=== PATIENT | female | born 1945 | race Caucasian/White ===

== ENCOUNTER 2017-09-07 07:09 | Day surgery (SDC) | payer OTHER, BC ==
[2017-09-07 07:58] VITALS: BMI 23.1
[2017-09-07] MEDS ORDERED: DEXAMETHASONE SOD PHOSPHATE/PF 10 MG/ML SDV ONE (10:58)
[2017-09-07] MEDS ORDERED: MIDAZOLAM HCL 2 MG/2 ML SINGLE DOSE VIAL ONE (10:58)
[2017-09-07] MEDS ORDERED: BUPIVACAINE HCL/PF (5 MG/ML) 30 ML VIAL IJ ONE (10:59)
[2017-09-07] MEDS ORDERED: PROPOFOL 20 ML ONE ×3 (12:13)
--- NOTE | 2017-09-07 14:02 | OP ---
Operative Note - Note: Operative Date: 09/07/17 Pre-Operative Diagnosis: 1. Right shoulder impingement syndrome. 2. Right rotator cuff tear Operation: Right shoulder open: 1. Neer decompression (acromioplasty, CA ligament release). 2. Nellie procedure (distal claviculectomy). 3. Rotator cuff repair Post-Operative Diagnosis: Same as Pre-op Surgeon: Ashutosh Esparza Plant Director: Cristi Esparza (Co-Surgeon) Anesthesiologist/POWDER WORKER: Robe Gongora Anesthesia: MAC (Interscalene block) Estimated Blood Loss (mls): 75 Operative Report Dictated: Yes
[2017-09-07 14:10] VITALS: TEMP 97.7
[2017-09-07] MEDS ORDERED: ONDANSETRON 4 MG/2 ML VIAL ONE (14:22)
[2017-09-07] MEDS ORDERED: ONDANSETRON 4 MG/2 ML VIAL IVPUSH ONE (14:26)
[2017-09-07] MEDS ORDERED: PROMETHAZINE HCL 25 MG/1 ML VIAL IVPUSH PRN (14:52)
[2017-09-07] MEDS ORDERED: oxyCODONE HCL 5 MG TABLET PO PRN ×2 (14:52)
[2017-09-07] MEDS ORDERED: ONDANSETRON 4 MG/2 ML VIAL IVPUSH PRN (14:52)
[2017-09-07] MEDS ORDERED: PRILOSEC OTC 20 MG PO PRN (15:27)
[2017-09-07 15:58] VITALS: BP 153/78; PULSE 59
--- NOTE | 2017-09-07 19:56 | OP ---
DATE OF OPERATION: 09/07/2017 SURGEON: Ashutosh Esparza M.D. CO-SURGEON: Cristi Esparza M.D. PREOPERATIVE DIAGNOSIS: Impingement syndrome with rotator cuff tear, right shoulder, failed conservative treatment. POSTOPERATIVE DIAGNOSIS: Impingement syndrome with rotator cuff tear, right shoulder, failed conservative treatment. OPERATING PERFORMED: 1. Lateral excision claviculectomy ([employer]). 2. Transection of coracoacromial ligament. 3. Acromioplasty. 4. Repair of rotator cuff. ANESTHESIA: Scalene block with general conscious sedation. ANTIBIOTICS GIVEN: 2 g Kefzol, 1 g vancomycin. PROCEDURE: Patient correctly identified. Under regional anesthesia and conscious sedation, the right upper extremity was prepped in the routine manner with Betadine scrub solution, wiped with alcohol, Duraprep applied, a free drape applied accordingly. From the tip of the coracoid to the tip of the acromion in the line of Geovanna the incision was made. The dissection was taken to the level in the plane to reach the clavicle. A was placed around the back surface of the clavicle and the AC joint identified. The AC joint was incised with a 15 blade needle. Marked degenerative changes on the joint were noted. The deltoid was split longitudinally to expose the coracoacromial ligament. Once this had been performed, using a 15 blade, the coracoacromial ligament was incised. A [place] instrument was placed under this to separate the tissues from the deep underlying rotator cuff. The ligament was transected appropriately, both cranially and caudally in relation to the ligament. The entire rotator cuff was freed. It was impossible to get a finger into the subacromial space. With gentle traction I was able to get a curved 1-inch osteotome on the undersurface of the acromion, leaving the humeral head down, and an appropriate acromioplasty was performed to resect the bone that was hard up against the actual humeral head. Once this had been performed completely, compression had been achieved on the subacromial space, as well as the ability to look at the rotator cuff clearly. With the shoulder in extension, a 1 x 1 cm tear was located; this was repaired with number 1 Vicryl sutures. This was after resection of the avascular peripheral margin of the tear. That means bleeding healthy tissue was approximated to healthy bleeding tissue. The wounds were thoroughly lavaged. Closure was as follows: The shoulder excision arthroplasty remaining capsule was folded into position. The deltoids were approximated with 2-0 Vicryl, the subcutaneous 2-0 Vicryl, skin 3-0 Monocryl with Steri-Strips. A sling provided. Overall, operation went well. No complications. MD ZION White/[id number]
[2017-09-07] MEDS ORDERED: PATIENT'S OWN MEDICATION (NON-FORMULARY) (Cyclosporine [Restasis] 1 DROP) OU SCH (22:00)
[2017-09-07] MEDS ORDERED: CROMOLYN SODIUM 4% OPHTH DROPS 10 ML BOTTLE OU SCH (22:00)
[2017-09-08] MEDS ORDERED: MOMETASONE FUROATE 110 MCG/IH INHALER IH SCH (10:00)
== END 2017-09-07 15:45 | disposition home or self-care (01) ==
LOC: FASU 07:09
PROVIDERS: ATTEND Orthopaedic Surgery Orthopaedic Surgery of the Spine
PROC: 0LB10ZZ Excision of Right Shoulder Tendon, Open Approach (ICD-10-PCS; 2017-09-07)
PROC: 0PB90ZZ Excision of Right Clavicle, Open Approach (ICD-10-PCS; principal; 2017-09-07 12:46)
DX: M75.41 Impingement syndrome of right shoulder (principal); M75.101 Unspecified rotator cuff tear or rupture of right shoulder, not specified as traumatic
CPT/HCPCS: 94760

== ENCOUNTER 2021-05-27 08:00 | Inpatient (IN) | payer OTHER, BC ==
[2021-06-02 12:18] VITALS: BMI 23.5
[2021-06-03] MEDS ORDERED: SODIUM CHLORIDE 0.9% P/F 10 ML VIAL IJ ONE (06:28)
[2021-06-03] MEDS ORDERED: MIDAZOLAM HCL 2 MG/2 ML SINGLE DOSE VIAL ONE (06:28)
[2021-06-03] MEDS ORDERED: BUPIVACAINE LIPOSOME/PF (EXPAREL) 266 MG/20 ML VIAL ONE (06:28)
[2021-06-03] MEDS ORDERED: BUPIVACAINE HCL/PF 0.5% (5MG/ML) 10 ML VIAL ONE (06:28)
[2021-06-03] MEDS ORDERED: LOCK ITEM NR ONE (06:40)
[2021-06-03] MEDS ORDERED: PROPOFOL 20 ML ONE ×3 (07:03)
[2021-06-03] MEDS ORDERED: BUPIVACAINE HCL 50 ML ONE (07:10)
[2021-06-03] MEDS ORDERED: BENZOIN/ALOE VERA/STORAX/TOLU 30 ML TINCTURE ONE (07:41)
[2021-06-03] MEDS ORDERED: VANCOMYCIN 1,000 MG VIAL (RESTRICTED TO ID ONLY) ONE (09:07)
[2021-06-03] MEDS ORDERED: DEXAMETHASONE SOD PHOSPHATE 4 MG/1 ML VIAL ONE (09:07)
[2021-06-03] MEDS ORDERED: ceFAZolin SODIUM 1 GM VIAL ONE ×3 (09:07→21:11)
[2021-06-03] MEDS ORDERED: TRANEXAMIC ACID 1000 MG/10 ML VIAL ONE (09:07)
[2021-06-03] MEDS ORDERED: ONDANSETRON 4 MG/2 ML VIAL ONE (09:07)
[2021-06-03] MEDS ORDERED: ePHEDrine SULFATE 50 MG/1 ML AMPULE ONE (09:10)
[2021-06-03] MEDS ORDERED: ACETAMINOPHEN 325 MG TABLET (FP) PO PRN (12:05)
[2021-06-03] MEDS: ACETAMINOPHEN 1000 MG/100 ML VIAL IVPB PRN (12:05)
[2021-06-03] MEDS ORDERED: oxyCODONE HCL 5 MG TABLET PO PRN (12:05)
[2021-06-03] MEDS ORDERED: ONDANSETRON 4 MG/2 ML VIAL IVPUSH PRN (12:05)
[2021-06-03] MEDS ORDERED: KETOROLAC TROMETHAMINE 30 MG/1 ML VIAL ONE (12:06)
[2021-06-03] MEDS ORDERED: ARTIFICIAL TEARS (POLYVINYL ALCOHOL) OPTH DROPS OU PRN (12:06)
[2021-06-03] MEDS ORDERED: ACETAMINOPHEN INJECTION 100 ML IVPB ONE (12:06)
[2021-06-03] MEDS ORDERED: LACTATED RINGERS SOLUTION 1,000 ML IV SCH ×2 (12:15→13:00)
[2021-06-03] MEDS: KETOROLAC TROMETHAMINE 30 MG/1 ML VIAL IVPUSH SCH ×3 (12:18→18:16)
[2021-06-03] MEDS ORDERED: MAG HYDROX/AL HYDROX/SIMETH 30 ML UNIT-DOSE CUP PO PRN (12:50)
[2021-06-03] MEDS ORDERED: MAGNESIUM HYDROX 2400MG/30ML ORAL SUSPENSION 30 ML CUP PO PRN (12:50)
[2021-06-03] MEDS ORDERED: PROMETHAZINE HCL 25 MG/1 ML VIAL ONE (13:01)
[2021-06-03] MEDS: PROMETHAZINE HCL 25 MG/1 ML VIAL IVPUSH ONE ×2 (13:07→14:26)
[2021-06-03] MEDS: traMADol HCL 50 MG TABLET PO PRN ×2 (14:39→21:33)
[2021-06-03] MEDS ORDERED: DEXTROSE 5%-WATER 100 ML IVPB ONE ×2 (16:06→21:11)
[2021-06-03] MEDS: CEFAZOLIN 2 GM in DEXTROSE 5%-WATER 100 ML IVPB SCH ×2 (16:14→21:23)
[2021-06-03] MEDS ORDERED: HYDROmorphone HCL CARPU-JECT 2 MG/1 ML DISP.SYRIN IVPB PRN (16:29)
[2021-06-03] MEDS ORDERED: diazePAM 5 MG TABLET PO PRN (16:31)
[2021-06-03] MEDS ORDERED: HYDROmorphone HCl 2 MG/ML VIAL IVPB PRN (17:17)
[2021-06-03] MEDS ORDERED: CEFAZOLIN 2 GM in DEXTROSE 5%-WATER - 50 ML IVPB SCH (18:00)
[2021-06-03] MEDS ORDERED: PROMETHAZINE HCL 25 MG/1 ML VIAL IVPUSH ONE (18:25)
[2021-06-03] MEDS ORDERED: PT OWN MED DRAWER 7, Y5N ONE (21:11)
[2021-06-03] MEDS: ASPIRIN COATED 81 MG TABLET.EC PO SCH (21:18)
[2021-06-03] MEDS: GABAPENTIN 300 MG CAPSULE PO SCH (21:18)
[2021-06-03] MEDS: SENNOSIDES/DOCUSATE COMBO (SENNA PLUS) TABLET (UD) PO SCH (21:19)
[2021-06-03] MEDS: CROMOLYN SODIUM 4% OPHTH DROPS 10 ML BOTTLE OU SCH (21:20)
[2021-06-03] MEDS: DORZOLAMIDE 2% HCL OPHTHALMIC SOLUTION 10 ML BOTTLE OU SCH (21:21)
[2021-06-03] MEDS: BRIMONIDINE TARTRATE 0.15% OPHTHALMIC 5 ML BOTTLE OU SCH (21:22)
[2021-06-04] MEDS: CEFAZOLIN 2 GM in DEXTROSE 5%-WATER 100 ML IVPB SCH (03:35)
[2021-06-04] MEDS: ONDANSETRON 4 MG/2 ML VIAL IVPUSH PRN ×2 (05:38→12:27)
[2021-06-04 08:30] LABS: CALCIUM 8.4 mg/dl (8.5-10); CREATININE 0.6 mg/dl (0.55-1.3)
[2021-06-04] MEDS ORDERED: PT OWN MED DRAWER 7, Y5N ONE (08:55)
[2021-06-04] MEDS: BRIMONIDINE TARTRATE 0.15% OPHTHALMIC 5 ML BOTTLE OU SCH ×2 (09:46→21:30)
[2021-06-04] MEDS: MOMETASONE FUROATE 110 MCG/IH INHALER IH SCH (09:46)
[2021-06-04] MEDS: DORZOLAMIDE 2% HCL OPHTHALMIC SOLUTION 10 ML BOTTLE OU SCH ×2 (09:46→21:30)
[2021-06-04] MEDS: LORATADINE 10 MG TABLET PO SCH (09:46)
[2021-06-04] MEDS: CROMOLYN SODIUM 4% OPHTH DROPS 10 ML BOTTLE OU SCH ×2 (09:47→21:30)
[2021-06-04] MEDS: ASPIRIN COATED 81 MG TABLET.EC PO SCH ×2 (09:47→21:29)
[2021-06-04] MEDS: MULTIVITAMINS (DAILY MVI) TABLET (FP) PO SCH (09:48)
[2021-06-04] MEDS: SENNOSIDES/DOCUSATE COMBO (SENNA PLUS) TABLET (UD) PO SCH ×2 (09:48→21:29)
[2021-06-04] MEDS: GABAPENTIN 300 MG CAPSULE PO SCH ×2 (09:48→21:29)
[2021-06-04] MEDS: PANTOPRAZOLE 40 MG TABLET PO SCH (09:48)
[2021-06-04] MEDS: traMADol HCL 50 MG TABLET PO PRN ×2 (09:52→16:22)
[2021-06-04] MEDS: ACETAMINOPHEN 1000 MG/100 ML VIAL IVPB PRN ×3 (09:53→22:40)
[2021-06-04 09:57] LABS: HEMATOCRIT 34.7 % (32.4-45.2); HEMOGLOBIN 11.5 GM/dL (10.7-15.3); MCH 29.8 pg (25.7-33.7); MCHC 33.3 g/dl (32.0-36.0); MEAN CELL VOLUME 89.5 fl (80-96); MEAN PLT VOLUME 9.6 fl (7.5-11.1); PLATELET COUNT 146 10^3/uL (134-434); RBC 3.87 M/mm3 (3.60-5.2); RDW 14.4 % (11.6-15.6); WHITE BLOOD COUNT 8.2 K/mm3 (4.0-10.0)
[2021-06-04] MEDS ORDERED: PATIENT'S OWN MEDICATION (NON-FORMULARY) (Fexofenadine Hcl [Allegra Allergy] 180 MG Tablet PO SCH (10:00)
[2021-06-04] MEDS ORDERED: SCOPOLAMINE HYDROBROMIDE 1 PATCH PATCH.TD72 TD SCH (13:00)
[2021-06-05] MEDS: PATIENT'S OWN MEDICATION (NON-FORMULARY) (Cyclosporine [Restasis] 1 EACH Droperette) OU SCH ×2 (03:13→10:33)
[2021-06-05] MEDS: traMADol HCL 50 MG TABLET PO PRN ×2 (05:15→10:16)
[2021-06-05] MEDS: ACETAMINOPHEN 1000 MG/100 ML VIAL IVPB PRN (05:15)
[2021-06-05] MEDS: BRIMONIDINE TARTRATE 0.15% OPHTHALMIC 5 ML BOTTLE OU SCH (09:36)
[2021-06-05] MEDS: DORZOLAMIDE 2% HCL OPHTHALMIC SOLUTION 10 ML BOTTLE OU SCH (09:37)
[2021-06-05] MEDS: CROMOLYN SODIUM 4% OPHTH DROPS 10 ML BOTTLE OU SCH (09:37)
[2021-06-05] MEDS: ASPIRIN COATED 81 MG TABLET.EC PO SCH (10:14)
[2021-06-05] MEDS: LORATADINE 10 MG TABLET PO SCH (10:14)
[2021-06-05] MEDS: GABAPENTIN 300 MG CAPSULE PO SCH (10:14)
[2021-06-05] MEDS: SENNOSIDES/DOCUSATE COMBO (SENNA PLUS) TABLET (UD) PO SCH (10:15)
[2021-06-05] MEDS: MULTIVITAMINS (DAILY MVI) TABLET (FP) PO SCH (10:15)
[2021-06-05] MEDS: PANTOPRAZOLE 40 MG TABLET PO SCH (10:15)
[2021-06-05] MEDS: MOMETASONE FUROATE 110 MCG/IH INHALER IH SCH (11:38)
[2021-06-05 12:49] LABS: HEMOGLOBIN 11.8 GM/dL (10.7-15.3); MCH 29.5 pg (25.7-33.7); MCHC 32.7 g/dl (32.0-36.0); MEAN CELL VOLUME 90.1 fl (80-96); MEAN PLT VOLUME 9.8 fl (7.5-11.1); PLATELET COUNT 169 10^3/uL (134-434); RBC 3.99 M/mm3 (3.60-5.2); RDW 14.4 % (11.6-15.6); WHITE BLOOD COUNT 10.3 K/mm3 (4.0-10.0)
[2021-06-05 14:30] VITALS: BP 128/60; PULSE 80; TEMP 98.2
== END 2021-06-05 16:18 | disposition home or self-care (01) | DRG 470 ==
LOC: FM/S 06-03 05:43
PROVIDERS: ADMIT Orthopaedic Surgery Orthopaedic Surgery of the Spine; ATTEND Orthopaedic Surgery Orthopaedic Surgery of the Spine
PROC: 0SRD0J9 Replacement of Left Knee Joint with Synthetic Substitute, Cemented, Open Approach (ICD-10-PCS; principal; 2021-06-03 08:47)
DX: M17.12 Unilateral primary osteoarthritis, left knee (principal); M50.30 Other cervical disc degeneration, unspecified cervical region; H40.9 Unspecified glaucoma
CPT/HCPCS: 36415; 73560-TC-LT-FY; 80048; 85027; 88305-TC; 88311-TC; 94760; 97010-GP; 97116-GP; 97162-GP; J0131

== ENCOUNTER 2021-08-12 05:54 | Inpatient (IN) | payer OTHER, BC ==
[2021-08-11 10:10] VITALS: BMI 22.8
[2021-08-12] MEDS ORDERED: SODIUM CHLORIDE 0.9% P/F 10 ML VIAL IJ ONE (06:36)
[2021-08-12] MEDS ORDERED: BUPIVACAINE HCL 50 ML ONE (06:36)
[2021-08-12] MEDS ORDERED: MIDAZOLAM HCL 2 MG/2 ML SINGLE DOSE VIAL ONE ×2 (06:36→07:49)
[2021-08-12] MEDS ORDERED: BUPIVACAINE LIPOSOME/PF (EXPAREL) 266 MG/20 ML VIAL ONE (06:36)
[2021-08-12] MEDS ORDERED: SCOPOLAMINE HYDROBROMIDE 1 PATCH PATCH.TD72 ONE (07:35)
[2021-08-12] MEDS ORDERED: PROPOFOL 20 ML ONE ×2 (07:49)
[2021-08-12] MEDS ORDERED: ONDANSETRON 4 MG/2 ML VIAL ONE (08:19)
[2021-08-12] MEDS ORDERED: DEXAMETHASONE SOD PHOSPHATE 4 MG/1 ML VIAL ONE (08:19)
[2021-08-12] MEDS ORDERED: ceFAZolin SODIUM 1 GM VIAL ONE ×3 (08:19→20:35)
[2021-08-12] MEDS ORDERED: KETOROLAC TROMETHAMINE 30 MG/1 ML VIAL ONE (08:19)
[2021-08-12] MEDS ORDERED: TRANEXAMIC ACID 1000 MG/10 ML VIAL ONE ×2 (08:19→10:44)
[2021-08-12] MEDS ORDERED: VANCOMYCIN 1,000 MG VIAL (RESTRICTED TO ID ONLY) ONE (08:19)
[2021-08-12] MEDS ORDERED: MAG HYDROX/AL HYDROX/SIMETH 30 ML UNIT-DOSE CUP PO PRN (11:05)
[2021-08-12] MEDS ORDERED: MAGNESIUM HYDROX 2400MG/30ML ORAL SUSPENSION 30 ML CUP PO PRN (11:05)
[2021-08-12] MEDS ORDERED: LACTATED RINGERS SOLUTION 1,000 ML IV SCH ×2 (11:15→11:30)
[2021-08-12] MEDS ORDERED: PROMETHAZINE HCL 25 MG/1 ML VIAL IVPUSH PRN (11:16)
[2021-08-12] MEDS ORDERED: ONDANSETRON 4 MG/2 ML VIAL IVPUSH PRN (11:16)
[2021-08-12] MEDS ORDERED: oxyCODONE HCL 5 MG TABLET PO PRN ×2 (11:16)
[2021-08-12] MEDS: ACETAMINOPHEN 1000 MG/100 ML BAG IVPB ONE (11:30)
[2021-08-12] MEDS ORDERED: oxyCODONE HCL 5 MG TABLET ONE (12:35)
[2021-08-12] MEDS ORDERED: traMADol HCL 50 MG TABLET ONE (12:40)
[2021-08-12] MEDS ORDERED: traMADol HCL 50 MG TABLET PO ONE (12:44)
[2021-08-12] MEDS ORDERED: ARTIFICIAL TEARS (POLYVINYL ALCOHOL) OPTH DROPS OU PRN (13:55)
[2021-08-12] MEDS ORDERED: DEXTROSE 5%-WATER - 50 ML IVPB ONE ×2 (15:40→20:35)
[2021-08-12] MEDS: traMADol HCL 50 MG TABLET PO PRN ×2 (15:44→22:56)
[2021-08-12] MEDS: CEFAZOLIN 2 GM in DEXTROSE 5%-WATER - 50 ML IVPB SCH ×2 (15:46→21:01)
[2021-08-12] MEDS: KETOROLAC TROMETHAMINE 30 MG/1 ML VIAL IVPUSH SCH (17:28)
[2021-08-12] MEDS: ACETAMINOPHEN 500 MG TABLET (FP) PO SCH ×2 (17:29→23:07)
[2021-08-12] MEDS: LORATADINE 10 MG TABLET PO SCH (21:02)
[2021-08-12] MEDS: SENNOSIDES/DOCUSATE COMBO (SENNA PLUS) TABLET (UD) PO SCH (21:02)
[2021-08-12] MEDS: ASPIRIN COATED 81 MG TABLET.EC PO SCH (21:02)
[2021-08-12] MEDS: DORZOLAMIDE 2% HCL OPHTHALMIC SOLUTION 10 ML BOTTLE OU SCH (21:02)
[2021-08-12] MEDS: BRIMONIDINE TARTRATE 0.15% OPHTHALMIC 5 ML BOTTLE OU SCH (21:02)
[2021-08-12] MEDS ORDERED: PATIENT'S OWN MEDICATION (NON-FORMULARY) (Omeprazole Magnesium [Prilosec Otc] 20 MG Tablet PO SCH (22:00)
[2021-08-12] MEDS ORDERED: oxyCODONE HCL 10 MG SUSTAINED ACTING TABLET PO SCH (22:00)
[2021-08-13] MEDS ORDERED: traMADol HCL 50 MG TABLET PO ONE (01:55)
[2021-08-13] MEDS ORDERED: ceFAZolin SODIUM 1 GM VIAL ONE (02:24)
[2021-08-13] MEDS: CEFAZOLIN 2 GM in DEXTROSE 5%-WATER - 50 ML IVPB SCH (03:02)
[2021-08-13] MEDS: ONDANSETRON 4 MG/2 ML VIAL IVPUSH PRN ×2 (03:34→11:04)
[2021-08-13] MEDS: KETOROLAC TROMETHAMINE 30 MG/1 ML VIAL IVPUSH SCH (04:12)
[2021-08-13] MEDS: ACETAMINOPHEN 1000 MG/100 ML BAG IVPB ONE (04:12)
[2021-08-13] MEDS: ACETAMINOPHEN 500 MG TABLET (FP) PO SCH ×3 (05:12→18:25)
[2021-08-13 08:04] LABS: CALCIUM 8.8 mg/dl (8.5-10); CREATININE 0.5 mg/dl (0.55-1.3)
[2021-08-13 09:18] LABS: HEMATOCRIT 34.9 % (32.4-45.2); HEMOGLOBIN 11.1 GM/dL (10.7-15.3); MCH 28.5 pg (25.7-33.7); MCHC 31.8 g/dl (32.0-36.0); MEAN CELL VOLUME 89.5 fl (80-96); MEAN PLT VOLUME 9.5 fl (7.5-11.1); PLATELET COUNT 162 10^3/uL (134-434); RDW 14.6 % (11.6-15.6); WHITE BLOOD COUNT 6.3 K/mm3 (4.0-10.0)
[2021-08-13] MEDS: ASPIRIN COATED 81 MG TABLET.EC PO SCH ×2 (09:45→21:43)
[2021-08-13] MEDS: SENNOSIDES/DOCUSATE COMBO (SENNA PLUS) TABLET (UD) PO SCH ×2 (09:45→21:43)
[2021-08-13] MEDS: PANTOPRAZOLE 40 MG TABLET PO SCH (09:45)
[2021-08-13] MEDS: CELECOXIB 200 MG CAPSULE PO SCH (09:45)
[2021-08-13] MEDS: traMADol HCL 50 MG TABLET PO PRN ×2 (09:46→18:25)
[2021-08-13] MEDS: CROMOLYN SODIUM 4% OPHTH DROPS 10 ML BOTTLE OU SCH ×2 (09:53→23:53)
[2021-08-13] MEDS: MOMETASONE FUROATE 110 MCG/IH INHALER IH SCH (09:56)
[2021-08-13] MEDS: DORZOLAMIDE 2% HCL OPHTHALMIC SOLUTION 10 ML BOTTLE OU SCH ×2 (10:57→21:42)
[2021-08-13] MEDS: BRIMONIDINE TARTRATE 0.15% OPHTHALMIC 5 ML BOTTLE OU SCH ×2 (10:58→21:42)
[2021-08-13] MEDS: LORATADINE 10 MG TABLET PO SCH (21:43)
[2021-08-14] MEDS: ACETAMINOPHEN 500 MG TABLET (FP) PO SCH ×3 (04:30→12:13)
[2021-08-14] MEDS: traMADol HCL 50 MG TABLET PO PRN ×2 (05:20→12:12)
[2021-08-14 07:56] LABS: HEMATOCRIT 31.4 % (32.4-45.2); HEMOGLOBIN 10.2 GM/dL (10.7-15.3); MCH 28.8 pg (25.7-33.7); MCHC 32.3 g/dl (32.0-36.0); MEAN CELL VOLUME 89.2 fl (80-96); MEAN PLT VOLUME 9.4 fl (7.5-11.1); PLATELET COUNT 143 10^3/uL (134-434); RBC 3.52 M/mm3 (3.60-5.2); RDW 14.8 % (11.6-15.6); WHITE BLOOD COUNT 7.2 K/mm3 (4.0-10.0)
[2021-08-14] MEDS: PATIENT'S OWN MEDICATION (NON-FORMULARY) (Cyclosporine [Restasis] 1 EACH Droperette) OU SCH ×2 (08:29→08:30)
[2021-08-14] MEDS: CROMOLYN SODIUM 4% OPHTH DROPS 10 ML BOTTLE OU SCH ×2 (08:29→09:39)
[2021-08-14] MEDS: ASPIRIN COATED 81 MG TABLET.EC PO SCH (09:38)
[2021-08-14] MEDS: CELECOXIB 200 MG CAPSULE PO SCH (09:38)
[2021-08-14] MEDS: PANTOPRAZOLE 40 MG TABLET PO SCH (09:38)
[2021-08-14] MEDS: SENNOSIDES/DOCUSATE COMBO (SENNA PLUS) TABLET (UD) PO SCH (09:38)
[2021-08-14] MEDS: DORZOLAMIDE 2% HCL OPHTHALMIC SOLUTION 10 ML BOTTLE OU SCH (09:39)
[2021-08-14] MEDS: MOMETASONE FUROATE 110 MCG/IH INHALER IH SCH (09:39)
[2021-08-14] MEDS: BRIMONIDINE TARTRATE 0.15% OPHTHALMIC 5 ML BOTTLE OU SCH (09:40)
[2021-08-14 14:09] VITALS: BP 105/64; PULSE 87; TEMP 97.7
== END 2021-08-14 15:38 | disposition home health service (06) | DRG 470 ==
LOC: FM/S 05:54
PROVIDERS: ADMIT Orthopaedic Surgery Orthopaedic Surgery of the Spine; ATTEND Orthopaedic Surgery Orthopaedic Surgery of the Spine
PROC: 0SRC0J9 Replacement of Right Knee Joint with Synthetic Substitute, Cemented, Open Approach (ICD-10-PCS; principal; 2021-08-12 08:43)
DX: M17.11 Unilateral primary osteoarthritis, right knee (principal); H40.9 Unspecified glaucoma; M50.30 Other cervical disc degeneration, unspecified cervical region
CPT/HCPCS: 36415; 73560-TC-RT-FY; 73562-TC-LT-FY; 80048; 85027; 88305-TC; 88311-TC; 94760; 97010-GP; 97116-GP; 97161-GP